=== PATIENT | female | born 1955 ===

== ENCOUNTER 2018-07-26 12:53 | Emergency (ER) | payer SELFPAY ==
[2018-07-26 13:04] VITALS: RESP 16; TEMP 97
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
--- NOTE | 2018-07-26 14:40 | RAD ---
Date of service: 07/26/2018 PROCEDURE: Radiographs of the left shoulder joint HISTORY: shoulder pain x 9 months COMPARISON: No prior. FINDINGS: BONES: Bone alignment and mineralization are normal. There is no acute displaced fracture or bone destruction. JOINTS: The glenohumeral and acromioclavicular joints are preserved. No significant degenerative osteoarthrosis. SOFT TISSUES: Normal. OTHER FINDINGS: None. IMPRESSION: No acute displaced fracture or dislocation.
--- NOTE | 2018-07-26 14:41 | RAD ---
Date of service: 07/26/2018 PROCEDURE: Right Wrist Radiographs. HISTORY: right hand/wrist pain x several days COMPARISON: None. FINDINGS: BONES: Bone alignment and mineralization are normal. There is no acute displaced fracture or bone destruction. JOINTS: There is mild degenerative osteoarthrosis in the 1st MCP and scaphotrapezium joints. The remaining joint spaces are preserved. SOFT TISSUES: Normal. OTHER FINDINGS: None. IMPRESSION: No acute fracture or dislocation. 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
[2018-07-26 17:09] VITALS: BP 149/85; PULSE 60; O2SAT 98
== END 2018-07-26 17:08 | disposition home or self-care (01) ==
LOC: H.ER 12:53
DX: M25.512 Pain in left shoulder (principal); M25.531 Pain in right wrist
CPT/HCPCS: 73030; 73110; 96372; 99282; J1885

== ENCOUNTER 2018-08-15 11:15 | Emergency (ER) | payer MEDICAID ==
[2018-08-15 11:21] VITALS: BP 131/86; PULSE 74; TEMP 97; O2SAT 98
[2018-08-15 11:22] VITALS: BMI 27.3
--- NOTE | 2018-08-15 12:30 | ED PDOC ---
HPI: Skin/Bite Injury Time Seen by Provider: 08/15/18 11:56 Chief Complaint (Nursing): Abnormal Skin Integrity Chief Complaint (Provider): Pimple on Head History Per: Patient History/Exam Limitations: no limitations Onset/Duration Of Symptoms: Days (x2 weeks) Current Symptoms Are (Timing): Still Present Additional Complaint(s): 62 year old female presents to the ED for evaluation of a pimple to the back of her head for the past two weeks. Patient reports while she has not seen a doctor yet, she has been using hot compresses at home along with taking Ibuprofen for t he pain with some relief. She additionally notes taking her son's amoxicillin without any improvement. Otherwise denies fever, headache, vomiting, and other complaints. PMD: non [facility] Provider Past Medical History Reviewed: Historical Data, Nursing Documentation, Vital Signs Vital Signs: Last Vital Signs Temp 97 F L 08/15/18 11:20 Pulse 74 08/15/18 11:20 Resp BP 131/86 08/15/18 11:20 Pulse Ox 98 08/15/18 11:20 - Medical History PMH: No Chronic Diseases Denies: HTN, Hyperlipidemia, Chronic Kidney Disease - Surgical History Surgical History: No Surg Hx - Family History Family History: States: Unknown Family Hx - Social History Current smoker - smoking cessation education provided: No Alcohol: None Drugs: Denies - Immunization History Hx Tetanus Toxoid Vaccination: No Hx Influenza Vaccination: No Hx Pneumococcal Vaccination: No - Home Medications Home Medications: Ambulatory Orders Medication Instructions Recorded traMADol [Ultram] 50 mg PO QID PRN #20 tab 05/28/14 Cyclobenzaprine [Cyclobenzaprine 10 mg PO Q8H PRN 5 Days tab 07/26/18 HCl] Doxycycline Hyclate 100 mg PO BID #20 capsule 08/15/18 Ibuprofen [Motrin Tab] 600 mg PO Q6 PRN 5 Days tab 08/15/18 Neomycin/Polymyxin/Bacitracin 1 applic TOP DAILY #1 tube 08/15/18 [Neosporin Oint] - Allergies Allergies/Adverse Reactions: Allergies Allergy/AdvReac Type Severity Reaction Status Date / Time No Known Allergies Allergy Verified 07/26/18 13:01 Review of Systems ROS Statement: Except As Marked, All Systems Reviewed And Found Negative Constitutional: Negative for: Fever Gastrointestinal: Negative for: Vomiting Skin: Positive for: Other (pimple to back of head) Neurological: Negative for: Headache Physical Exam - Reviewed Nursing Documentation Reviewed: Yes Vital Signs Reviewed: Yes - Physical Exam Appears: Positive for: No Acute Distress Head Exam: Positive for: ATRAUMATIC, NORMOCEPHALIC (except approx. 5cm in diameter round area at the midline occipital skull that is tender, erythematous, and swollen, with no discharge or fluctuance) Skin: Positive for: Normal Color, Warm, Dry Eye Exam: Positive for: Normal appearance ENT: Positive for: Normal ENT Inspection Neck: Positive for: Normal, Painless ROM, Supple - ECG O2 Sat by Pulse Oximetry: 98 (RA) Pulse Ox Interpretation: Normal Medical Decision Making Medical Decision Making: Time: 1234 Initial Plan: cellulitis, folliculitis of skull -- Patient to be discharged with script for doxycycline, instructed to use warm compresses at home, and follow up with her primary doctor. Scribe Attestation: Documented by Vidhya Frye acting as a scribe for Raul Frost MD. Provider Scribe Attestation: All medical record entries made by the Scribe were at my direction and personally dictated by me. I have reviewed the chart and agree that the record accurately reflects my personal performance of the history, physical exam, medical decision making, and the department course for this patient. I have also personally directed, reviewed, and agree with the discharge instructions and disposition. Disposition - Clinical Impression Clinical Impression: Furuncle of scalp - Patient ED Disposition Is Patient to be Admitted: No Doctor Will See Patient In The: Office Counseled Patient/Family Regarding: Studies Performed, Diagnosis, Need For Followup - Disposition Referrals: [facility] [Outside] Disposition: Routine/Home Disposition Time: 12:50 Condition: GOOD Additional Instructions: LORI CARLSON, thank you for letting us take care of you today. Your provider was Raul Frost MD and you were treated for BACK PAIN. The emergency medical care you received today was directed at your acute symptoms. If you were prescribed any medication, please fill it and take as directed. It may take several days for your symptoms to resolve. Return to the Emergency Department if your symptoms worsen, do not improve, or if you have any other problems. Please contact your doctor or call one of the physicians/clinics you have been referred to that are listed on the Patient Visit Information form that is included in your discharge packet. Bring any paperwork you were given at discharge with you along with any medications you are taking to your follow up visit. Our treatment cannot replace ongoing medical care by a primary care provider outside of the emergency department. Thank you for allowing the [facility] team to be part of your care today. If you had an X-Ray or CT scan: A Radiologist will review the ED reading if any change in treatment is needed we will contact you. If you had a blood, urine, or wound culture: It will take several days for the results, if any change in treatment is needed we will contact you. If you had an STI test: It will take 48 hours for the results. Please call after 1 week if you have not heard back. Prescriptions: Doxycycline Hyclate 100 mg PO BID #20 capsule Ibuprofen [Motrin Tab] 600 mg PO Q6 PRN 5 Days tab PRN Reason: Pain, Moderate (4-7) Neomycin/Polymyxin/Bacitracin [Neosporin Oint] 1 applic TOP DAILY #1 tube Instructions: Boil (DC)
== END 2018-08-15 13:00 | disposition home or self-care (01) ==
LOC: H.ER 11:15
DX: L02.821 Furuncle of head [any part, except face] (principal)